=== PATIENT | female | born 1995 | race Caucasian/White ===

== ENCOUNTER 2024-04-21 06:52 | Day surgery (SDC) | payer BC ==
[2024-04-20 10:06] VITALS: BMI 24.1
[2024-04-21] MEDS ORDERED: PROPOFOL 20 ML ONE (07:01)
[2024-04-21] MEDS ORDERED: Ferric Subsulfate 8 ML TOPICAL SOLN ONE (08:25)
[2024-04-21] MEDS ORDERED: fentaNYL PF 100 MCG/2 ML SYRINGE ONE (08:26)
[2024-04-21 08:33] LABS: BHCG - Serum Negative (NEGATIVE); Pregs Control Background? CLEAR/WHITE (CLR/WHITE); Pregs Control Bar Appear? YES (CONTROL BAR)
[2024-04-21] MEDS ORDERED: Midazolam HCl 2 mg/2 ml Vial ONE (08:36)
[2024-04-21] MEDS ORDERED: SUGAMMADEX SODIUM 200 MG/2 ML VIAL ONE ×2 (08:49→08:50)
[2024-04-21] MEDS ORDERED: Dexamethasone 4 mg/ml Vial ONE (09:07)
[2024-04-21] MEDS ORDERED: Lidocaine 1% PF 5 ML VIAL ONE (09:07)
[2024-04-21] MEDS ORDERED: Rocuronium Bromide 10 MG/ML (10ML VIAL) ONE (09:07)
[2024-04-21] MEDS ORDERED: Ondansetron PF 4 MG/2 ML Vial ONE (09:07)
[2024-04-21] MEDS ORDERED: fentaNYL 50 mcg/mL 1 mL Vial ONE (09:43)
== END 2024-04-21 11:25 | disposition home or self-care (01) ==
LOC: SDC 06:52
PROVIDERS: ATTEND Otolaryngology Plastic Surgery within the Head & Neck
PROC: 0CTPXZZ Resection of Tonsils, External Approach (ICD-10-PCS; principal; 2024-04-21)
PROC: 0CTQXZZ Resection of Adenoids, External Approach (ICD-10-PCS; principal; 2024-04-21)
DX: J35.3 Hypertrophy of tonsils with hypertrophy of adenoids (principal); J35.01 Chronic tonsillitis; D64.9 Anemia, unspecified; Z79.899 Other long term (current) drug therapy; R51.9 Headache, unspecified
CPT/HCPCS: 84703; 88304; J1100; J2250; J2405; J2704; J3010